=== PATIENT | male | born 1945 | race Caucasian/White ===

== ENCOUNTER 2017-04-04 09:08 | Day surgery (SDC) | payer MEDICARE, BC ==
[~2017-04-04 09:08] MED LIST: Bupivacaine 0.5% 50 ML MDV ONE; Lidocaine 1% with EPINEPHrine 1:100,000 50 ML MDV ONE
[2017-04-04] MEDS ORDERED: Glycopyrrolate 0.2 MG/ML 5 ML MDV ONE (09:11)
[2017-04-04] MEDS ORDERED: Succinylcholine 200 MG/10 ML MDV ONE (09:11)
[2017-04-04] MEDS ORDERED: Ondansetron 4 MG/2 ML SDV ONE (09:11)
[2017-04-04] MEDS ORDERED: Dexamethasone 4 MG/ML SDV ONE (09:11)
[2017-04-04] MEDS ORDERED: Neostigmine Methylsulfate 1 MG/ML 5 ML Syringe ONE (09:11)
[2017-04-04] MEDS ORDERED: Rocuronium 50 MG/5 ML Vial ONE (09:11)
[2017-04-04] MEDS ORDERED: Propofol 200 MG/20 ML SDV ONE (09:11)
[2017-04-04] MEDS ORDERED: metroNIDAZOLE/Normal Saline 500 MG in Premix Bag 1 BAG IV ONE (10:00)
[2017-04-04] MEDS ORDERED: Sodium Chloride 0.9% 1,000 ML IV SCH (10:00)
[2017-04-04] MEDS ORDERED: ceFAZolin 2 GM in Premix Bag 1 BAG IV ONE (10:00)
[2017-04-04] MEDS ORDERED: Ketorolac 60 MG/2 ML SDV ONE (11:32)
[2017-04-04] MEDS ORDERED: Acetaminophen/HYDROcodone 325-5 MG Tab PO ONE (13:15)
[2017-04-04 13:17] VITALS: BP 107/66
--- NOTE | 2017-04-08 08:57 | OR ---
DATE OF PROCEDURE: 04/04/2017 PROCEDURE: Total extraperitoneal hernia repair with mesh, right. COMPLICATIONS: None. 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 ANESTHESIA: General/local. INDICATIONS: A 72-year-old male with right inguinal hernia requiring repair. RISKS: Risks, benefits, alternatives, limitations including, but not limited to infection, bleeding, and perforation were explained to the patient and wished to proceed. PROCEDURE IN DETAIL: The patient was placed in supine position. The abdomen was prepped and draped. A linear incision was made infraumbilical to avoid the previous umbilical hernia repair. This was carried out with blunt dissection to the space between the rectus muscles and the peritoneum. A Pean was used to create a potential space. The balloon was introduced and this was dilated using approximately 30 pumps of air. This was then replaced and the retaining balloon was insufflated. The camera was introduced, and a good dissection was noted. Two 5-mm ports were also entered under direct visualization. Using blunt dissection, the cord structures were identified and retracted medially. Of note, a photo was taken of this at the termination of the procedure to verify no interaction with these structures. The peritoneum was deflected in a standard fashion, working lateral to medial. No significant bleeding was noted during this, and electrocautery was not used during this procedure. Once potential space was created, the mesh was introduced and unrolled with the center point at the focus of the hernia. It was unfolded totally. During the dissection process, a small rent was created in the peritoneum, and air was introduced into the peritoneum itself. This will be removed by a 5-mm port at the end of the procedure. The mesh was then held into place as the abdomen was desufflated. The wounds were closed with 3-0 Vicryl, 4-0 Vicryl and Dermabond, after thorough irrigation. The patient tolerated the procedure well. Gavino Souza MD /[id number]
== END 2017-04-04 13:45 | disposition home or self-care (01) ==
LOC: JP.SDS 09:08
PROVIDERS: ATTEND Surgery
DX: K40.90 Unilateral inguinal hernia, without obstruction or gangrene, not specified as recurrent (principal); E78.5 Hyperlipidemia, unspecified; E16.2 Hypoglycemia, unspecified; Z90.49 Acquired absence of other specified parts of digestive tract; Z98.890 Other specified postprocedural states; Z79.899 Other long term (current) drug therapy; Z88.8 Allergy status to other drugs, medicaments and biological substances
CPT/HCPCS: 49505; A9270; C1781; J0690; J1100; J1885; J2405; J2704; J2710; J3010; J7040; J0330